=== PATIENT | male | born 1985 | race African-American/Black ===

== ENCOUNTER 2025-06-11 18:51 | Emergency (ER) | payer OTHER ==
[~2025-06-11] VITALS: Ht 182.9 cm; Wt 144.6 kg
[2025-06-11 18:58] VITALS: BP 141/74; PULSE 75; RESP 18; TEMP 99; O2SAT 97
--- NOTE | 2025-06-11 19:56 | RADIOLOGY REPORT ---
CLINICAL HISTORY: BILAT ANKLE PAIN TECHNIQUE: 3 views of the left ankle were obtained. COMPARISON: DI ANKLE, COMPLETE(3VW MIN) on DOS: 06/11/25 FINDINGS: No acute fracture or dislocation is seen. The ankle mortise is intact. There is soft tissue swelling. IMPRESSION: Soft tissue swelling. No acute osseous abnormality seen.
--- NOTE | 2025-06-11 19:58 | RADIOLOGY REPORT ---
CLINICAL HISTORY: ANKLE PAIN TECHNIQUE: 3 views of the left ankle were obtained. COMPARISON: DI ANKLE, COMPLETE(3VW MIN) on DOS: 06/11/25 FINDINGS: No acute fracture or dislocation is seen. The ankle mortise is intact. There is soft tissue swelling. There is a moderate enthesophyte at the calcaneal insertion of the Achilles tendon. There is small plantar calcaneal spur. There are scattered soft tissue calcifications of the hindfoot. IMPRESSION: Soft tissue swelling. No acute osseous abnormality seen.
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
[2025-06-12] MEDS ORDERED: IBUP-1984 PO (13:10)
== END 2025-06-11 22:49 | disposition home or self-care (01) ==
LOC: ER 18:53
DX: S99.811A Other specified injuries of right ankle, initial encounter (principal); S99.812A Other specified injuries of left ankle, initial encounter; W31.9XXA Contact with unspecified machinery, initial encounter; Y93.89 Activity, other specified; Y92.89 Other specified places as the place of occurrence of the external cause; Y99.8 Other external cause status
CPT/HCPCS: 73610; 99283; L4360